=== PATIENT | male | born 1970 | race Caucasian/White ===

== ENCOUNTER → 2018-01-23 | Outpatient (CLI) | payer OTHER ==
[~2018-01-23] MED LIST: ASCA500 PO; MULT-506 PO
[2018-01-23 17:36] LABS: BASO % 0.2 %; BASO ABS # 0.02 K/uL (0-0.2); EOS % 0.7 %; EOS ABS # 0.09 K/uL (0-0.5); HEMATOCRIT 46.5 % (42-52); HEMOGLOBIN 16.2 g/dL (14.0-18.0); IG# 0.04 K/uL (0.00-0.02); LYMPH % 21.8 %; LYMPH ABS # 2.78 K/uL (1.2-3.4); MEAN CELL VOLUME 89.1 fL (80-100); MEAN CORPUSCULAR HGB CONC 34.8 g/dl (32-36); MEAN PLATELET VOLUME 10.3 fL (7.4-10.4); MONO ABS # 1.14 K/uL (0.11-0.59); NEUT ABS # 8.66 K/uL (1.4-6.5); PLATELET COUNT 249 K/uL (130-400); RED CELL DISTRIBUTION WIDTH CV 13.1 % (11.5-14.5); RED CELL DISTRIBUTION WIDTH SD 42.6 fL (36.4-46.3); WHITE BLOOD COUNT 12.73 K/uL (4.8-10.8)
[2018-01-23 17:55] LABS: ALBUMIN 3.7 gm/dl (3.4-5.0); ALT/SGPT 39 U/L (12-78); AST/SGOT 21 U/L (15-37); BLOOD UREA NITROGEN 11 mg/dl (7-18); CALCIUM 8.8 mg/dl (8.5-10.1); CARBON DIOXIDE 28 mmol/L (21-32); CREATININE 1.02 mg/dl (0.60-1.40); GLUCOSE 89 mg/dl (70-99); SODIUM 137 mmol/L (136-145)
[2018-01-23 17:58] LABS: ALKALINE PHOSPHATASE 80 U/L (45-117); TOTAL PROTEIN 7.4 gm/dl (6.4-8.2)
== END | disposition home or self-care (01) ==
LOC: C.LABBFT 14:17
PROVIDERS: ATTEND Internal Medicine
DX: E78.00 Pure hypercholesterolemia, unspecified (principal); I10 Essential (primary) hypertension

== ENCOUNTER → 2018-03-25 | Outpatient (CLI) | payer OTHER ==
[~2018-03-25] MED LIST changes: +ASCO500C43 PO; +ATOR-22 PO; +KETO10TA PO; +LISI-461 PO; +OXYC-57 PO; +SACC250C11 PO
--- NOTE | 2018-03-25 15:01 | DIAGNOSTIC IMAGING REPORT ---
R ELBOW MIN 3 VIEWS ROUTINE CLINICAL HISTORY: M25.421 pain and swelling. COMPARISON: None. DISCUSSION: The fat pads are not displaced. No fractures or dislocations are visualized. There is an olecranon spur. IMPRESSION: 1. No acute fractures 2. Olecranon spur Electronically signed by: Regino Baeza M.D. 03/25/2018 3:00 PM Dictated Date/Time: 03/25/2018 2:59 PM
== END | disposition home or self-care (01) ==
LOC: C.RAD 14:04
PROVIDERS: ATTEND Physician Assistant Medical
DX: M25.721 Osteophyte, right elbow (principal)

== ENCOUNTER → 2018-03-26 | Outpatient (CLI) | payer OTHER ==
[2018-03-26 16:54] LABS: BASO % 0.2 %; BASO ABS # 0.02 K/uL (0-0.2); EOS % 1.1 %; HEMATOCRIT 45.2 % (42-52); IG# 0.01 K/uL (0.00-0.02); LYMPH % 30.4 %; LYMPH ABS # 2.71 K/uL (1.2-3.4); MEAN CELL VOLUME 88.3 fL (80-100); MEAN CORPUSCULAR HEMOGLOBIN 31.3 pg (25-34); MEAN CORPUSCULAR HGB CONC 35.4 g/dl (32-36); MEAN PLATELET VOLUME 10.4 fL (7.4-10.4); MONO % 10.2 %; MONO ABS # 0.91 K/uL (0.11-0.59); NEUT ABS # 5.16 K/uL (1.4-6.5); PLATELET COUNT 225 K/uL (130-400); RED CELL DISTRIBUTION WIDTH CV 13.1 % (11.5-14.5); RED CELL DISTRIBUTION WIDTH SD 42.4 fL (36.4-46.3); WHITE BLOOD COUNT 8.91 K/uL (4.8-10.8)
[2018-03-26 17:06] LABS: BLOOD UREA NITROGEN 10 mg/dl (7-18); CALCIUM 8.8 mg/dl (8.5-10.1); CARBON DIOXIDE 30 mmol/L (21-32); CREATININE 1.08 mg/dl (0.60-1.40); GLUCOSE 89 mg/dl (70-99); POTASSIUM 3.9 mmol/L (3.5-5.1); SODIUM 141 mmol/L (136-145)
== END | disposition home or self-care (01) ==
LOC: C.LABBC 14:52
PROVIDERS: ATTEND Orthopaedic Surgery
DX: Z01.812 Encounter for preprocedural laboratory examination (principal); S46.211A Strain of muscle, fascia and tendon of other parts of biceps, right arm, initial encounter; X58.XXXA Exposure to other specified factors, initial encounter

== ENCOUNTER → 2018-03-27 | Day surgery (SDC) | payer OTHER ==
[2018-03-26 15:44] VITALS: Ht 190.5 cm; Wt 144.6 kg
[~2018-03-27] VITALS: Ht 190.5 cm; Wt 144.6 kg
[~2018-03-27] MED LIST changes: -ASCA500 PO; +ATROPINE SULFATE 0.1 MG/ML 5ML SYR IV PRN; +BUPIVACAINE 0.25% 30 ML VIAL ONE; +CEFAZOLIN 2000MG IV PUSH 15 ML IV SCH; +DEXAMETHASONE SOD INJ 4 MG/ML VIAL IV PRN; +EpHEDrine SULFATE INJ 50 MG/ML AMP IV PRN; +EpINEphrine INJ 1MG/ML AMP 1 MG/ML AMP ONE; +FENTANYL CITRATE INJ 50 MCG/1 ML 2 ML VIAL ONE; +KETOROLAC TROMETHAMINE 30 MG/ML VIAL IV. PRN; +LABETALOL HCL IV 5 MG/ML 20ML IV PRN; +LACTATED RINGER'S 1000ML 1,000 ML IV SCH; +LIDOCAINE HCL 2% 2 ML VIAL (20MG/ML) ONE; +METOCLOPRAMIDE HCL INJ 5 MG/ML 2 ML VIAL IV PRN; +MIDAZOLAM HCL 1 MG/ML 2ML VIAL ONE; +MoRPHine SULFATE 10 MG/ML CARP/VIAL IV PRN; +ONDANSETRON INJ 2 MG/ML 2 ML VIAL IV PRN; +ONDANSETRON INJ 2 MG/ML 2 ML VIAL ONE; +OXYCODONE/ACETAMINOPHEN 5-325 TAB PO PRN; +PHENYLEPHRINE 100MCG/ML 5ML SYR IV PRN; +PROPOFOL IV EMULSION 10 MG/ML 20 ML VIAL ONE; +SODIUM CHLORIDE 0.9% 1000ML 1,000 ML IV SCH
--- NOTE | 2018-03-27 11:55 | History & Physical Bridge Note ---
H&P Re-Evaluation Bridge Note: I have examined the patient, reviewed the History & Physical and in the interval since the performance of the History & Physical I have noted the following changes of clinical significance: No changes noted
--- NOTE | 2018-03-27 14:14 | [facility] Post Operative Brief Note ---
Immediate Operative Summary Operative Date March 27, 2018. Pre-Operative Diagnosis Right distal bicep tendon rupture Post-Operative Diagnosis Same as preop Procedure(s) Performed Right Distal Biceps Tendon Repair Surgeon Dr. Horn Gyroscopic Instrument Tester Surgeon(s) Samuel Charles PA-C Estimated Blood Loss 20 mL Findings Consistent with Post-Op Diagnosis Specimens None Anesthesia Type General Complication(s) none Disposition Disposition: Recovery Room / PACU
--- NOTE | 2018-03-27 14:37 | Discharge Instructions-SurgCtr ---
Discharge Instructions Date of Service March 27, 2018. Visit Reason for Visit: Right Distal Biceps Tendon Rupture Discharge Discharge Diagnosis / Problem: SAME ABOVE Discharge Goals Goal(s): Decrease discomfort, Improve function Activity Recommendations Activity Limitations: as noted below Lifting Limitations: until after follow-up appointment Exercise/Sports Limitations: until after follow-up appointment Shower/Bathe: may shower/bathe in 3 days Anesthesia . Post Anesthesia Instructions: If you have had General Anesthesia or IV Sedation: * Do not drive today. * Resume driving when surgeon permits. * Do not make important decisions or sign legal documents today. * Call surgeon for: 1. Temperature elevations greater than 101 degrees F. 2. Uncontrollable pain. 3. Excessive bleeding. 4. Persistent nausea and vomiting. 5. Medication intolerance (nausea, vomiting or rash). * For nausea and vomiting use only clear liquids such as: tea, soda, bouillon until nausea subsides, then gradually increase diet as tolerated. * If you have any concerns or questions, call your surgeon's office. If physician is unavailable and it is an emergency, call 911 or go to the nearest emergency room. . Instructions / Follow-Up Instructions / Follow-Up MEDICATIONS: * Resume previous medications unless instructed otherwise by your surgeon. * Always take pain medication on a full stomach or with food to avoid upset stomach. * Do not drink alcohol or drive while taking narcotics. * Ibuprofen or Tylenol may be taken if narcotic not needed. SPECIAL CARE INSTRUCTIONS: __ None _X_ Keep extremity elevated and iced x 48 hours; apply ice 20-30 minutes 8-10 times/day. May remove at night. _X_ Sling _X_24 hrs/day (MAY REMOVE TO SHOWER) __ Remove at night __ Shoulder Immobilizer __ 24 hrs/day __ Remove at night _X_ Dressing __ Maintain until seen in office, may shower with plastic over site _X_ Remove dressings in 72 hours and then may shower _X_ Cover incisions with band-aids after showering __ Do not remove steri-strips Call physician if chills or temperature rises above 102 degrees or pain unrelieved by prescribed pain medications at . . Diet Recommendations Home Diet: no limitations Procedures Procedures Performed: Right Distal Biceps Tendon Repair Pending Studies Studies pending at discharge: no Work Instructions Return To Work: after follow-up Lifting Limitations: NO LIFTING WITH RIGHT ARM Medical Emergencies . Who to Call and When: Medical Emergencies: If at any time you feel your situation is an emergency, please call 911 immediately. . Non-Emergent Contact Non-Emergency issues call your: Primary Care Provider Call Non-Emergent contact if: you have a fever, temperature is above 101.5 . . "Provider Documentation" section prepared by Samuel Charles. .
[2018-03-27] MEDS: FENTANYL CITRATE INJ 50 MCG/1 ML 2 ML VIAL IV PRN ×2 (14:55→15:06)
[2018-03-27 15:52] VITALS: BP 155/78; PULSE 80; TEMP 36.4; O2SAT 95
--- NOTE | 2018-03-27 15:55 | Anesthesia Progress Nt - [facility] ---
Anesthesia Post Op Note Date & Time March 27, 2018 at 15:55 Vital Signs Pain Intensity: 7.0 Vital Signs Past 12 Hours Date Time Temp Pulse Resp B/P (MAP) Pulse Ox O2 Delivery O2 Flow Rate FiO2 03/27/18 15:52 36.4 80 16 155/78 (103) 95 Room Air 03/27/18 15:25 36.4 78 16 152/80 (104) 94 Room Air 03/27/18 15:21 160/88 03/27/18 15:20 77 17 95 03/27/18 15:20 78 17 03/27/18 15:20 36.6 76 16 160/88 96 Room Air 03/27/18 15:16 141/81 03/27/18 15:15 72 16 03/27/18 15:15 72 16 97 03/27/18 15:14 73 17 99 03/27/18 15:14 72 17 03/27/18 15:11 141/81 03/27/18 15:09 75 13 03/27/18 15:09 75 13 92 03/27/18 15:06 143/65 03/27/18 15:04 74 16 03/27/18 15:04 74 16 96 03/27/18 15:01 147/87 03/27/18 14:59 68 19 03/27/18 14:59 70 19 97 03/27/18 14:56 152/91 03/27/18 14:54 71 15 97 03/27/18 14:54 72 15 03/27/18 14:51 148/84 03/27/18 14:49 78 21 03/27/18 14:49 78 21 97 03/27/18 14:46 143/88 18 14:44 82 13 152/66 98 18 14:44 81 13 18 14:41 199/175 18 14:39 77 13 18 14:39 75 13 97 18 14:38 72 15 18 14:38 72 15 97 03/27/18 14:37 124/88 18 14:34 167/89 17/18 14:34 36.1 80 16 167/89 98 Mask 6 18 14:33 81 95 18 14:33 81 03/27/18 10:56 36.9 65 20 126/79 (95) 96 Room Air Notes Mental Status: alert / awake / arousable, participated in evaluation Pt Amnestic to Procedure: Yes Nausea / Vomiting: adequately controlled Pain: adequately controlled Airway Patency, RR, SpO2: stable & adequate BP & HR: stable & adequate Hydration State: stable & adequate Anesthetic Complications: no major complications apparent
--- NOTE | 2018-03-27 17:14 | OPERATIVE REPORT ---
DATE OF OPERATION: 03/27/2018 PREOPERATIVE DIAGNOSIS: Acute right distal biceps tendon rupture. POSTOPERATIVE DIAGNOSIS: Acute right distal biceps tendon rupture. PROCEDURE: Open right distal biceps tenodesis. SURGEON: Dr. Jose Carlos Horn. MILLING/POLISHING OPERATOR: Samuel Charles PA-C, whose assistance was necessary for retraction and closure. ANESTHESIA: General. COMPLICATIONS: None. CONDITION: Stable to PACU. INDICATIONS: Sang is a pleasant 47-year-old male who was cranking his new Model T a couple days ago when he felt a pop in his right elbow. I saw him in the office and clinical examination was diagnostic for a distal biceps tendon rupture. He elected to proceed with open tenodesis. DESCRIPTION OF PROCEDURE: On 03/27/2018, he arrived at [facility] for the above procedure. He was seen in the preoperative holding area and the operative extremity was identified and signed. He was given a preoperative antibiotic, taken back to operating room, laid on the table in supine position and put under general anesthesia. The right elbow was prepped and draped in sterile fashion. Time-out was done. The patient and the operative extremity was properly identified. An anterior Christopher approach was used. Dissection was taken down through the fascia with care not to disrupt the neurovascular bundles. Dissection was taken down between the mobile wad and the flexor pronator mass. The radial tuberosity was identified and the biceps tendon was absent. The biceps tendon was then found more proximal in the incision and pulled out the wound. The tendon was then whipstitched with an Arthrex FiberLoop suture. The tendon measured to be 7 mm. An Arthrex biceps pin was passed from the center of the radial tuberosity out the posterior cortex. A cannulated 8 mm drill bit was then used to drill a hole in the radial tuberosity. An Arthrex biceps button was placed on the tails of the FiberLoop suture. The biceps button was then passed through the 8 mm hole and out the posterior cortex. It was then flipped and tension slide technique was used to deliver the tendon into the 8 mm hole. This gave good fixation. A 7 x 10 mm biointerference screw was then placed. This pushed the tendon ulnarly. The tails from the FiberLoop were wrapped around the screw and tied. The elbow was brought through a full range of motion and felt to be stable. The wound was then irrigated and surrounding soft tissues were injected with 30 mL of Marcaine with epinephrine. The tourniquet was deflated and hemostasis was easily controlled. The skin was then closed with 3-0 Vicryl and 4-0 nylon suture. He was then placed in a soft dressing, extubated, transferred to a [facility] and taken to postanesthesia care unit in stable condition and tolerated the procedure well. I attest to the content of the Intraoperative Record and any orders documented therein. Any exception s are noted below.
== END | disposition home or self-care (01) ==
LOC: X.SURG 10:40
PROVIDERS: ATTEND Orthopaedic Surgery
DX: S46.201A Unspecified injury of muscle, fascia and tendon of other parts of biceps, right arm, initial encounter (principal); X50.0XXA Overexertion from strenuous movement or load, initial encounter; I10 Essential (primary) hypertension; E78.5 Hyperlipidemia, unspecified; Z79.899 Other long term (current) drug therapy

== ENCOUNTER 2024-11-02 10:03 | Observation (INO) ==
--- NOTE | 2024-10-02 15:15 | PAT Medication Instructions ---
Medication Instructions Date of Service October 02, 2024 Home Medications Medication Instructions Recorded Wheeled Walker #1 ea 09/09/24 walker #1 ea 09/10/24 Medications Lactobacillus acidophilus 10 billion cell capsule (Probiotic) 10,000 mmu cells PO QAM ascorbic acid (vitamin C) 1,000 mg tablet (Vitamin C) 2 g PO QAM atorvastatin 40 mg tablet 40 mg PO HS carvedilol 3.125 mg tablet 3.125 mg PO BID lisinopril 10 mg tablet 10 mg PO BID magnesium 250 mg tablet 250 mg PO BID multivitamin (Daily Multi-Vitamin tablet) 1 tab PO QAM MEDICATION INSTRUCTIONS: DO NOT take the morning of surgery multivitamin (Daily Multi-Vitamin tablet) 1 tab PO QAM Lactobacillus acidophilus 10 billion cell capsule (Probiotic) 10,000 mmu cells PO QAM ascorbic acid (vitamin C) 1,000 mg tablet (Vitamin C) 2 g PO QAM lisinopril 10 mg tablet 10 mg PO BID magnesium 250 mg tablet 250 mg PO BID Take morning of surgery With a small sip of water, OTHERWISE NOTHING TO EAT OR DRINK AFTER MIDNIGHT: carvedilol 3.125 mg tablet 3.125 mg PO BID Take evening before surgery atorvastatin 40 mg tablet 40 mg PO HS carvedilol 3.125 mg tablet 3.125 mg PO BID lisinopril 10 mg tablet 10 mg PO BID magnesium 250 mg tablet 250 mg PO BID Other Notes If you have any questions please call us at [phone] or [phone] or [phone] or [phone]
--- NOTE | 2024-10-13 09:05 | Anesthesiology Consultation ---
Date of Service October 13, 2024 Assessment & Plan (1) Encounter for pre-operative examination: - Outpatient joint assessment: Patient is currently scheduled for inpatient pathway. If re-evaluated and patient/surgeon requests outpatient pathway, patient is acceptable candidate for outpatient joint program from anesthesia standpoint pending surgeon's office assessment of pt motivation/support/completion of same day joint program preop requirements. Chart Review Chart Review: Acceptable Risk for Surgery and Patient seen in Pre Admission Testing Teaching & Discussion Pre-Anesthesia Teaching/Discussion Notes: Instructed NPO after midnight before surgery, except medications with 15 cc of water. Medication instructions provided according to the PAT guidelines. History Surgery Operation Date: 11/02/24 08:40 Proposed Procedures p Right Total Knee Arthroplasty - Jose Carlos Horn DO Height/Weight Height: 6 ft 3 in Weight: 151.2 kg Allergies Allergy/AdvReac Type Severity Reaction Status Date / Time No Known Allergies Allergy Mild Verified 10/02/24 14:28 Medications Home Medications Medication Instructions Recorded Confirmed Last Taken Wheeled Walker #1 ea 09/09/24 09/09/24 Unknown walker #1 ea 09/10/24 Unknown Lactobacillus acidophilus 10 10,000 mmu cells PO QAM 10/02/24 10/02/24 Unknown billion cell capsule (Probiotic) ascorbic acid (vitamin C) 1,000 mg 2 g PO QAM 10/02/24 10/02/24 Unknown tablet (Vitamin C) atorvastatin 40 mg tablet 40 mg PO HS 10/02/24 10/02/24 Unknown carvedilol 3.125 mg tablet 3.125 mg PO BID 10/02/24 10/02/24 Unknown lisinopril 10 mg tablet 10 mg PO BID 10/02/24 10/02/24 Unknown magnesium 250 mg tablet 250 mg PO BID 10/02/24 10/02/24 Unknown multivitamin (Daily Multi-Vitamin 1 tab PO QAM 10/02/24 10/02/24 Unknown tablet) Past Medical History Medical History (Updated 10/13/24 @ 09:24 by Camilla Florez PA-C) Arthritis Hyperlipidemia Hypertension controlled, stable per pt Lower leg edema left-ongoing since 2018-denies change or worsening Patient denies h/o stroke, seizures, heart attack, heart failure, DM, blood clots/DVTs or blood transfusions. Exercise / Class Metabolic Activity II 4-5 Yardwork/Stairs/Walk up hill (denies chest discomfort or shortness of breath with one flight of stairs) Past Family History Family History Mother Prediabetes Father BASHIR (obstructive sleep apnea) Lymphoma Other No family history of adverse response to anesthesia Past Surgical History Surgical History (Updated 10/13/24 @ 09:24 by Camilla Florez PA-C) H/O lumbar discectomy (2020) H/O tooth extraction History of appendectomy at age 9 History of arthroscopy multiple, right/left knees History of cardiac cath 2018>[facility]/no stents needed (done d/t lower legs swelling) *followed by Eliceo Carlos History of colonoscopy Past Anesthesia History No Hx of Anesthesia Complications and No Family Hx of Anesthesia Complications History of PONV No Hx of PONV and No Hx of Motion Sickness Social History Smoking Status: Never smoker Do You Dip or Chew Tobacco: No Hx Alcohol Use: Yes Alcohol type: beer alcohol intake frequency: a few times a month substance use type: does not use Review of Systems Occasional snoring, denies witnessed apneas-reports multiple negative sleep studies in the past. States was told his legs move frequently at night, denies diagnosis of periodic limb movement disorder or restless legs. Patient denies chest pain, shortness of breath, dyspnea on exertion, reflux, fever, chills, cough, wheezing, or palpitations. Physical Exam Vital Signs Vitals BP 125/73 P 77 TEMP 98.5 SP02 96% on RA RESP 19 Physical Patient resting comfortably in chair in no acute distress, alert and oriented, responding appropriately throughout visit Full cervical extension range of motion without pain TMD 3.5 finger breadths Mallampati Score 3 Dentition: intact, denies chipped or loose teeth, caps/crowns, implants or bridges Lungs: normal respiratory effort. Good air movement, clear throughout to auscultation, no adventitious breath sounds Cardiac: regular rate and rhythm, no murmurs noted Carotid arteries: negative bruit bilat Lab Results Anesthesia Preop Results Results Anesthesia Widget: WBC 7.52 K/ul (4.8-10.8) 10/13/24 Hgb 15.2 g/dl (14.0-18.0) 10/13/24 Hct 44.7 % (42.0-52.0) 10/13/24 Plt 250 K/uL (130-400) 10/13/24 Na 140 mmol/L (136-145) 10/13/24 K 4.4 mmol/L (3.5-5.1) 10/13/24 Cl 106 mmol/L (98-107) 10/13/24 CO2 31 mmol/L (21-32) 10/13/24 BUN 13 mg/dl (6-23) 10/13/24 Creat 1.02 mg/dl (0.6-1.4) 10/13/24 Glucose Level 106 mg/dl (70-99(Fasting)) H 10/13/24 PT 10.3 Seconds (9.0-12.0) 10/13/24 PTT 26 Seconds (21-31) 10/13/24 INR 0.9 (0.9-1.1) 10/13/24 Blood Type O Negative 10/13/24 Antibody Screen NEGATIVE 10/13/24 Testing Electrocardiogram Date: 10/13/24 NSR, rate 75 bpm Cannot rule out septal infarct, age undetermined When compared with 02/28/2011 EKG-no significant change Chest X-Ray Date: 10/13/24 No acute cardiopulmonary findings. Echocardiogram Date: 06/01/19 EF 65-70% Normal LV wall motion Mild cLVH No regional wall motion abnormalities Mildly dilated LA Stress Test Date: 07/17/19 MPHR 87% METS 7 EF 55-60% No LV regional wall motion abnormalities Moderate cLVH Mildly dilated RV No significant valvular abnormalities Cardiac Catheterization Date: 09/09/19 Left main: no evidence of disease LAD: no evidence of disease Circumflex: no evidence of disease RCA: no evidence
--- NOTE | 2024-10-29 06:54 | History & Physical Report ---
Date of Service October 29, 2024 Assessment & Plan (1) Right knee DJD: We will proceed with a right total knee arthroplasty. Postoperatively he will be started on aspirin for DVT prophylaxis and kept overnight in the hospital for postop medical management. He plans to use [facility] home therapy u chicho discharge. History of Present Illness Chief Complaint: Osteoarthritis of the right knee. Primary Care Provider: NO PCP Sang is a pleasant 54-year-old male who has been dealing with chronic increasing right knee pain. X-rays and clinical examination have been diagnostic for worsening osteoarthritis of the right knee. After failing extensive conservative treatment, he has elected to proceed with a right total knee arthroplasty. . Allergies Allergy/AdvReac Type Severity Reaction Status Date / Time No Known Allergies Allergy Mild Verified 10/02/24 14:28 Home Medications Medication Instructions Recorded Confirmed Type Wheeled Walker #1 ea 09/09/24 09/09/24 Rx walker #1 ea 09/10/24 Rx Lactobacillus acidophilus 10 10,000 mmu cells PO QAM 10/02/24 10/02/24 History billion cell capsule (Probiotic) ascorbic acid (vitamin C) 1,000 mg 2 g PO QAM 10/02/24 10/02/24 History tablet (Vitamin C) atorvastatin 40 mg tablet 40 mg PO HS 10/02/24 10/02/24 History carvedilol 3.125 mg tablet 3.125 mg PO BID 10/02/24 10/02/24 History lisinopril 10 mg tablet 10 mg PO BID 10/02/24 10/02/24 History magnesium 250 mg tablet 250 mg PO BID 10/02/24 10/02/24 History multivitamin (Daily Multi-Vitamin 1 tab PO QAM 10/02/24 10/02/24 History tablet) Past Med/Surg History Problem List Encounter for pre-operative examination Right knee DJD Knee joint effusion Medical History Arthritis Lower leg edema left-ongoing since 2018-denies change or worsening Hypertension controlled, stable per pt Hyperlipidemia Surgical History History of arthroscopy multiple, right/left knees H/O lumbar discectomy (2020) History of colonoscopy H/O tooth extraction History of cardiac cath 2019>[facility]/no stents needed (done d/t lower legs swelling) *followed by Eliceo Durhamardo History of appendectomy at age 9 Family History Mother Prediabetes Father BASHIR (obstructive sleep apnea) Lymphoma Other No family history of adverse response to anesthesia Social History Smoking Status: Never smoker 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 Physical Exam On physical exam of the right knee, he has a slight varus deformity. Tenderness palpation of the distal medial femoral condyle and over the medial joint line.. Constitutional WD/WN, vitals as above Eyes PERRL, conjunctivae normal, anicteric sclerae ENMT external ear and nose normal, oropharynx normal Neck trachea midline, no thyromegaly Respiratory normal respiratory effort Cardiovascular RRR, no murmur, no edema Gastrointestinal (Abdomen) normal bowel sounds, soft, nontender, no hepatosplenomegaly Psychiatric A+Ox3, euthymic affect Results & Data Results & Data Laboratory Results . Diagnostic Findings X-rays of the right knee show advanced osteoarthritis with joint space narrowing, osteophyte formation, and [id number] tubulation. PG Care Time/CCT Total # of Minutes Spent Total Time Spent with Patient: Total time spent is greater than 50% in coordination of care (as documented) at patient's floor/unit and/or counseling patient: Coding Level of Care Code None Diagnoses Right knee DJD M17.11
[~2024-11-02 10:03] MED LIST changes: -ASCO500C43 PO; -ATOR-22 PO; -ATROPINE SULFATE 0.1 MG/ML 5ML SYR IV PRN; -BUPIVACAINE 0.25% 30 ML VIAL ONE; +BUPIVACAINE 0.5 % 5 MG/1 ML PF 10ML VIAL ONE; -CEFAZOLIN 2000MG IV PUSH 15 ML IV SCH; -DEXAMETHASONE SOD INJ 4 MG/ML VIAL IV PRN; -EpHEDrine SULFATE INJ 50 MG/ML AMP IV PRN; -EpINEphrine INJ 1MG/ML AMP 1 MG/ML AMP ONE; -FENTANYL CITRATE INJ 50 MCG/1 ML 2 ML VIAL ONE; -KETO10TA PO; -KETOROLAC TROMETHAMINE 30 MG/ML VIAL IV. PRN; -LABETALOL HCL IV 5 MG/ML 20ML IV PRN; -LACTATED RINGER'S 1000ML 1,000 ML IV SCH; -LIDOCAINE HCL 2% 2 ML VIAL (20MG/ML) ONE; -LISI-461 PO; -METOCLOPRAMIDE HCL INJ 5 MG/ML 2 ML VIAL IV PRN; -MIDAZOLAM HCL 1 MG/ML 2ML VIAL ONE; -MULT-506 PO; -MoRPHine SULFATE 10 MG/ML CARP/VIAL IV PRN; -ONDANSETRON INJ 2 MG/ML 2 ML VIAL IV PRN; -ONDANSETRON INJ 2 MG/ML 2 ML VIAL ONE; -OXYC-57 PO; -OXYCODONE/ACETAMINOPHEN 5-325 TAB PO PRN; -PHENYLEPHRINE 100MCG/ML 5ML SYR IV PRN; -PROPOFOL IV EMULSION 10 MG/ML 20 ML VIAL ONE; +ROPIVACAINE 0.5% 5 MG/ML 30 ML VIAL ONE; -SACC250C11 PO; -SODIUM CHLORIDE 0.9% 1000ML 1,000 ML IV SCH
[2024-11-02] MEDS: LR 500ML BOLUS, THEN 15ML/HR IV SCH (10:50)
[2024-11-02] MEDS: LR 60ML/HR IV SCH (10:51)
[2024-11-02] MEDS: dexAMETHasone**PF** 10 MG/ML VIAL IV SCH (10:51)
[2024-11-02] MEDS: ACETAMINOPHEN 500 MG TAB PO SCH ×2 (10:51→21:54)
[2024-11-02] MEDS: GABAPENTIN 900 MG DOSE PO SCH (10:51)
[2024-11-02] MEDS: FAMOTIDINE 20 MG TAB PO SCH (10:51)
[2024-11-02] MEDS ORDERED: DROPERIDOL 5 MG/2 ML VIAL IV PRN (11:28)
[2024-11-02] MEDS ORDERED: ATROPINE SULFATE 0.1 MG/ML 10ML SYR IV PRN (11:28)
[2024-11-02] MEDS ORDERED: fentaNYL citrate PF 100 MCG/2 ML VIAL IV PRN (11:28)
[2024-11-02] MEDS ORDERED: ePHEDrine sulfate 50 MG/ML AMP IV PRN (11:28)
[2024-11-02] MEDS ORDERED: LIDOCAINE 2% 2 ML VIAL/AMP(20MG/ML) INFIL ONE (11:35)
[2024-11-02] MEDS ORDERED: ONDANSETRON INJ 2 MG/ML 2 ML VIAL ONE (11:35)
[2024-11-02] MEDS ORDERED: PROPOFOL IV EMULSION 10 MG/ML 20 ML VIAL IV ONE ×2 (11:35→13:42)
[2024-11-02] MEDS ORDERED: fentaNYL citrate PF 100 MCG/2 ML VIAL ONE (11:36)
[2024-11-02] MEDS ORDERED: MIDAZOLAM HCL 1 MG/ML 2ML VIAL ONE ×2 (11:37→12:28)
--- NOTE | 2024-11-02 12:08 | History & Physical Bridge Note ---
Date of Service November 02, 2024 History & Physical Bridge Note I have examined the patient, reviewed the History & Physical and in the interval since the performance of the History & Physical I have noted the following changes of clinical significance: no changes noted
[2024-11-02] MEDS: TRANEXAMIC ACID 1,000 MG **IV Pre-op IV SCH (12:22)
[2024-11-02] MEDS: ceFAZolin 3000MG 3,000 MG/72.5 ML BAG IV SCH (12:50)
[2024-11-02] MEDS: ORTHO JOINT ANESTHETIC ONE (13:30)
[2024-11-02] MEDS: ROPIV 0.5% 246mg, Ketorolac 30mg, EPINEPHrine 0.5mg in NSS INFIL SCH (13:30)
[2024-11-02] MEDS ORDERED: PHENYLEPHRINE HCL 10 MG/ML VIAL ONE (13:42)
[2024-11-02] MEDS: TRANEXAMIC ACID 1,000 MG **IV Intra-op IV SCH (13:47)
--- NOTE | 2024-11-02 14:01 | Anesthesiology Progress Note ---
Date of Service November 02, 2024 Anesthesia Post Procedure Vital Signs Vital Signs: Temp Pulse Resp BP Pulse Ox O2 Del Method 11/02/24 10:25 36.7 C 67 18 135/66 95 Room Air Notes Mental Status: alert / awake / arousable Patient Amnestic to Procedure: Yes Nausea / Vomiting: adequately controlled Pain: adequately controlled Airway Patency, RR, SpO2: stable & adequate BP & HR: stable & adequate Hydration State: stable & adequate Neuraxial Anesthesia: was administered and sensory block is resolving Anesthetic Complications: no major complications apparent
[2024-11-02] MEDS ORDERED: HYDROmorphone INJ 0.5 MG/0.5 ML SYR IV PRN (14:30)
[2024-11-02] MEDS ORDERED: MAGNESIUM HYDROXIDE SUSP 30 ML UDC PO PRN (14:30)
[2024-11-02] MEDS ORDERED: ONDANSETRON INJ 2 MG/ML 2 ML VIAL IV PRN (14:30)
[2024-11-02] MEDS ORDERED: METOCLOPRAMIDE HCL INJ 5 MG/ML 2 ML VIAL IV PRN (14:30)
[2024-11-02] MEDS ORDERED: NALOXONE HCL 0.4 MG/1 ML VIAL/CARP IV PRN (14:30)
[2024-11-02] MEDS ORDERED: bisacodyL 10 MG SUPP PR PRN (14:30)
--- NOTE | 2024-11-02 15:08 | XRay Report ---
XR knee RT 1 or 2V routine CLINICAL HISTORY: Surgical Post Op TECHNIQUE: 2 views of the right knee were obtained. Comparison: Comparison is made to tibia-fibula radiographs 02/28/2011 FINDINGS: Patient is status post total knee arthroplasty with expected postsurgical changes including soft tiss ue swelling and subcutaneous emphysema. No periarticular lucency or hardware fracture is seen. IMPRESSION: Expected postoperative appearance status post placement of total knee arthroplasty. ACT 112: Negative or not required by law. Electronically signed by: Joni Barnett M.D. 11/02/2024 3:07 PM
--- NOTE | 2024-11-02 15:25 | Operative Report ---
PG Post Operative Report Pre & Post Diagnosis Operation Date: 11/02/24 12:00 Pre-Op Diagnosis: Right Knee Arthritis Post-Op Diagnosis: Right Knee Arthritis I identified the patient and participated in the time-out.: Yes Procedure Operation Date: 11/02/24 12:00 Actual Procedures p Right Total Knee Arthroplasty(Right) - Jose Carlos Horn DO Surgeon Jose Carlos Horn DO Glue Machine Operator Sanjay Wilcox PA-C Estimated Blood Loss 30 Findings Consistent with Post-Op Diagnosis Specimens Right femoral and tibial bone Description of Procedure Implants used: I used a Veronica Persona total knee arthroplasty system with a size 12 standard PS femur, G tibia, 34 oval patella, and a size 10 CPS polyethylene bearing. All components were cemented in place with Biomet cement. Sang arrived [facility] for the above procedure. He was seen in the preoperative holding area and the operative extremity was identified and signed. He was given a preoperative antibiotic, TXA, a spinal anesthetic and an adductor nerve block. He was taken back to the operating room and laid on the table in supine position. He was given basic sedation. The operative knee was then prepped and draped in sterile fashion. A timeout was done, and the patient and the operative extremity was properly identified. A midline incision was made directly over the patella. Dissection was taken down to the extensor mechanism. A medial parapatellar arthrotomy was used. The medial retinaculum was released and the fat pad was mostly excised. The knee was flexed and the ACL, PCL, and meniscus were removed. A drill was sent down the center of the femoral canal followed by an intramedullary saleem. Off that saleem a distal femoral cutting block was placed. 9 mm was resected off the distal femur at 5 of valgus. A posterior referencing AP sizing guide was then placed on the distal femur. The femur measured to be a size 12. 2 drill holes were placed in 3 of external rotation. A 4-in-1 cutting block was then impacted into place. Anterior, posterior, and chamfer cuts were then made. The proximal tibia was then exposed. An external tibial alignment guide was placed. A tibial cut guide was then anchored in place and the proximal tibia was then resected. The posterior aspect of the knee was then opened up and any additional meniscus fragments and osteophytes were removed. The tibia measured to be a size G. The tibial plate was then placed in the appropriate rotation and the tibia was drilled and punched. Trial components were then placed. I used a size 12 CPS polyethylene insert. The knee was brought through a full range of motion and felt to be stable. The peg holes for the femoral component were then drilled. The patella was then everted and 9 mm was resected off the posterior aspect of the patella. The patella measured to be a size 34 oval. 3 peg holes were then drilled. A trial patella was placed. The knee was once again brought through a full range of motion and felt to be stable. Trial components were then removed. The surrounding soft tissues were injected with 100 cc of an orthopedic pain control cocktail. All components were then cemented into place with Biomet cement. The final polyethylene insert was then snapped into place. Once cement was dry the tourniquet was deflated. Hemostasi s was obtained. A dilute betadyne lavage was then done for 3 minutes. The joint was then irrigated with normal saline solution. The medial parapatellar arthrotomy was then closed with #1 Vicryl suture. The skin was closed with 2-0 Vicryl, 3-0V lock suture, and bruna. A soft compressive dressing was placed. He was then transferred to a hospital bed and taken to the postanesthesia care unit in stable condition. He tolerated the procedure well. Sanjay Wilcox PA-C, was present for the entire procedure. He was critical for patient positioning, prepping, draping, retraction exposure, wound closure and application of sterile dressing. I attest to the content of the Intraoperative Record and any orders documented therein. Any exceptions are noted below.
[2024-11-02] MEDS: KETOROLAC TROMETHAMINE 15 MG/ML VIAL IV SCH (16:05)
[2024-11-02 16:48] VITALS: RESP 16
[2024-11-02] MEDS: oxyCODONE HCL IR 5 MG TAB (IMMEDIATE RELEASE) PO PRN (17:44)
[2024-11-02] MEDS ORDERED: ceFAZolin 1000MG 1,000 MG/7.5 ML SYR IV SCH (20:30)
[2024-11-02] MEDS: lisinopril 10 MG TAB PO SCH (21:52)
[2024-11-02] MEDS: MAGNESIUM OXIDE 400 MG TAB PO SCH (21:52)
[2024-11-02] MEDS: ASPIRIN 81 MG ECTAB PO SCH (21:53)
[2024-11-02] MEDS: DOCUSATE SODIUM 100 MG CAP PO SCH (21:53)
[2024-11-02] MEDS: carvediloL 3.125 MG TAB PO SCH (21:53)
[2024-11-02] MEDS: SENNA 8.6 MG TAB PO SCH (21:53)
[2024-11-02] MEDS: ATORVASTATIN 40 MG TAB PO SCH (21:53)
[2024-11-02] MEDS: ceFAZolin 2000MG 2,000 MG/15 ML SYR IV SCH (21:55)
--- NOTE | 2024-11-03 06:02 | Discharge Summary ---
Date of Service November 03, 2024 Admission HPI (Per Admitting) Sang is a pleasant 54-year-old male who has been dealing with chronic increasing right knee pain. X-rays and clinical examination have been diagnostic for worsening osteoarthritis of the right knee. After failing extensive conservative treatment, he has elected to proceed with a right total knee arthroplasty. . Admission Exam (Per Admitting) On physical exam of the right knee, he has a slight varus deformity. Tenderness palpation of the distal medial femoral condyle and over the medial joint line.. Principal Diagnosis Same as "Discharge Diagnosis" noted below under Discharge Instructions. Discharge Exam On physical exam of the right knee, the dressing is clean and dry. His leg is out full extension. He has active dorsiflexion plantarflexion of his right ankle.. Discharge Data Procedures Performed Operation Date: 11/02/24 12:00 Actual Procedures p Right Total Knee Arthroplasty(Right) - Jose Carlos Horn DO Ordered Studies 11/02/24 05:00 US - OR guided needle placemen Routine Hospital Course (1) Status post right knee replacement: On November 02, 2024 Sang arrived at [facility] and underwent a right knee replacement without complication. He had a spinal anesthetic. Postoperatively he was started on aspirin for DVT prophylaxis and transferred to the general orthopedic floors. His hospital course was uneventful. On postop day #1, his vital signs were stable and his pain was well-controlled. He was able to participate well with physical therapy doing ambulation and range of motion exercises. He was then discharged to home. He will follow-up with orthopedics in 2 weeks. PG Care Time/CCT Total # of Minutes Spent Total Time Spent with Patient: Total time spent is greater than 50% in coordination of care (as documented) at patient's floor/unit and/or counseling patient: Discharge Plan Discharge Items Patient Disposition: Home - Self-Care Reason For Visit: Right Knee Arthritis Discharge Diagnosis: Osteoarthritis of the right knee Activity: Per Instructions section Non-emergency contact: Surgeon Call non-emergency contact if: your wound has increased redness and your wound has increased drainage Follow-up/Referrals: PCP,NO [Primary Care Provider] - Diet: Regular Addtl Attending Provider Instructions: Activity and Therapy Recommendations: * If you are using [facility] then therapy will be provided at your home until they feel you have accomplished all of your goals. * If you are using [facility] then Physical Therapy will be provided until they feel you are ready to start Outpatient Physical Therapy. * If you are not using home therapy then Outpatient Physical Therapy should start about 3-5 days from your day of surgery. Therapy will last about 6-10 weeks * It is important not to put a pillow under your knee when you are relaxing or sleeping. It is just as important to make sure you are getting your knee perfectly straight as it is to regain your knee bend. * You were shown a series of exercises in the hospital. Do these exercises three times each day including the exercises you were shown in physical therapy. * Get up and walk several times each day. For the first four weeks, try not to stand or walk for more than one hour at a time. If you do stand or walk for more than one hour, you will not hurt anything, but your leg will likely swell. * As you feel comfortable, you may change from the walker or crutches to a cane and then to independent walking. Medications: * Narcotic You will likely be sent home from the hospital with a prescription for the narcotic pain medication that worked best throughout your stay. * Cefadroxil -take the antibiotic twice a day for 10 days to help prevent in fection. * Aspirin Most patients will be required to take Aspirin 81mg twice a day for 6 weeks after surgery. This is obtained [id number] and a prescription is not necessary. * Other medications may be prescribed for specific circumstances. If you have any questions, please call the office at . * Resume previous home medications unless otherwise instructed TEDs/Elastic Stockings: The white elastic stockings help limit swelling and prevent blood clots from forming in your legs.~ The more you wear them, the more they work. Wear them for six weeks. Dressing Care: The dressing can be changed after physical therapy on postop day #1. Daily dry dressing changes for a few days, especially if the incision is still draining some. If the incision is not draining then you may leave the bruna open to air. If there is a little bit of drainage or if the bruna are getting stuck on your clothing then cover the incision with a dry dressing. The bruna will be removed at your 2 week follow-up appointment. Showering: You may shower 5 days from the day of surgery as long as the incision is no longer draining. You may shower with the bruna exposed. Let soapy water run over the bruna and pat them dry. Do not scrub or soak the incision. Diet: You may resume your previous diet. Things To Watch For: * Drainage from the incision site that occurs more than one week after your s urgery. * Increased redness at the incision site. * Fever above 102 degrees Fahrenheit. * Unusual chest pain or shortness of breath. * Call [facility] at with any of the above problems Follow-Up Visit: Follow-up with Dr. Horn's office 2-3 weeks after your day of surgery. We will remove your bruna and answer any questions. If you have any additional questions or concerns, Dr Horn is usually in the office at the same time and will be available An appointment was probably scheduled when you signed-up for surgery in the office. If you have any questions call Office Instructions: More detailed instructions as well as Frequently Asked Questions were provided in a folder by our office when you signed-up for surgery. Please review these instructions when you get home. If you have any further questions or concerns, please feel free to call the office at [phone] Pending Studies at Discharge: No Stand-Alone Forms: [facility], Smoking Cessation Medications and DC Order Prescriptions: New oxycodone 5 mg tablet 5 mg PO Q6H PRN (Reason: pain) Qty: 30 0RF cefadroxil 500 mg capsule 500 mg PO BID 10 Days Qty: 20 0RF aspirin [Adult Aspirin Regimen] 81 mg tablet,delayed release (DR/EC) 81 mg PO BID Qty: 84 0RF Continued ([place]DA[place] [facility] [place] .MED[place]PPLY Qty: 1 0RF Rx Instructions: As directed (DME) Dilma Ramirez [facility] [place] .MEDSUPPLY Qty: 1 0RF Rx Instructions: As directed atorvastatin 40 mg Tablet 40 mg PO HS ascorbic acid (vitamin C) [Vitamin C] 1,000 mg Tablet 2 g PO QAM carvedilol 3.125 mg Tablet 3.125 mg PO BID Rx Instructions: must administer with a meal/food magnesium 250 mg Tablet 250 mg PO BID Probiotic 10 billion cell Capsule 10,000 mmu cells PO QAM Patient Comments: 60 billion daily multivitamin [Daily Multi-Vitamin] tablet 1 tab PO QAM lisinopril 10 mg tablet 10 mg PO BID Discharge Orders: Discharge Order (Routine); Ordered 11/03/24 Ordered By: Jose Calros Horn Admission Data Admit Date/Time: 11/02/24 14:30 Attending Provider: Jose Carlos Horn Admit Provider: Jose Carlos Horn Primary Care Provider: PCP,CRISTY
--- NOTE | 2024-11-03 06:02 | Orthopedic Progress Note ---
Date of Service November 03, 2024 Assessment & Plan (1) Status post right knee replacement: Overall he is doing very well. He is not having much pain in the right knee. He will be seen by physical therapy today for ambulation and range of motion exercises. The nursing staff can change his dressing after physical therapy. He is on aspirin for DVT prophylaxis. He can be discharged to home later today. He will follow-up orthopedics in 2 weeks. Gerard Domínguez was seen and examined at bedside this morning. Overall he is doing very well. He is not having much pain in the right knee. He has been up and ambulating to the bathroom. He has no complaints.. Review of Systems All systems reviewed & are unremarkable except as noted in HPI & below. Physical Exam On physical exam of the right knee, the dressing is clean and dry. His leg is out full extension. He has active dorsiflexion plantarflexion of his right ankle.. Results & Data Results & Data Laboratory Results . Diagnostic Findings Postoperative x-rays of the right knee show the prosthesis to be in anatomic alignment without any evidence of fracture complication, or loosening.. PG Care Time/CCT Total # of Minutes Spent Total Time Spent with Patient: Total time spent is greater than 50% in coordination of care (as documented) at patient's floor/unit and/or counseling patient: Coding Level of Care Code 49642 Post Operative Follow-Up Diagnoses Status post right knee replacement Z96.651
[2024-11-03 07:54] VITALS: BP 110/71; TEMP 97.7; O2SAT 96
[2024-11-03] MEDS: ADVANCED PROBIOTIC 625 MG CAPSULE PO SCH (08:55)
[2024-11-03] MEDS: ASCORBIC ACID 500 MG TAB PO SCH (08:55)
[2024-11-03] MEDS: MULTIVITAMIN TAB PO SCH ×2 (08:55→08:56)
[2024-11-03] MEDS: dexAMETHasone 4 MG TAB PO SCH (08:56)
[2024-11-03 09:40] VITALS: PULSE 68
--- OUTSIDE RECORDS SUMMARY | 2024-11-03 10:50 | External Medical Summary | Summary of Care ---
Author Name Unknown Organization [facility] Address [address] [place] [address] Phone [phone] Care Team Providers Care Automatic Brine Mixer Operator Name Role Phone Rosaura Cody MD Primary Care Provider [phone] Reason for Referral * Evaluate & Treat - Unlimited Visits (Within 30 days (routine)) - Authorized Specialty Diagnoses / Procedures Referred By Contmyesha t Referred To Contact Dermatology Diagnoses History of melanoma in situ Screening for malignant neoplasm of skin Rosaura Cody MD [address] [place] [address] Phone: tel: fax: Referral ID Status Reason Start Date Expiration Date Visits Requested Visits Authorized [id number] Authorized Specialty Services Required 4 [phone] Question Answer Referral Priority Within 30 days (routine) Where should this appointment be scheduled? [facility] Are you referring the patient for Mohs Surgery and have a current positive skin cancer biopsy result? No What is the reason for the patient referral? Rash/Skin Check/Eval of Lesion or Mole Reason for Visit * Reason Onset Date Comments Referral 10/27/2024 Encounter Details Date Type Department Care Team (Late st Contact Info) Description 10/27/2024 Telephone General Internal Medicine [place] [facility] [address] [place] [address] Rosaura Cody MD [address] [place] [id number] Referral Allergies No known active allergiesdocumented as of this encounter (statuses as of 11/02/2024) Medications CENTRUM PO TABS 1 tablet by mouth once daily Active VITAMIN C 1000 MG PO TABS 2-3 tablets by mouth daily Active Lactobacillus (PROBIOTIC ACIDOPHILUS) CAPS Take 1 Cap by mouth daily. Active Sildenafil Citrate 50 MG Oral Tablet (Viagra)Indicati ons:Other male erectile dysfunction 1 tab 1-4 hours before intercourse, no more than 1 dose in 24 hours. 10 Tablet 5 01/22/2024 Active Carvedilol 3.125 MG Oral Tablet (Coreg)Indicatio ns:Hypertensive left ventricular hypertrophy, without heart failure TAKE 1 TABLET BY MOUTH TWICE A DAY 180 Tablet 3 03/09/2024 Active Lisinopril 10 MG Oral Tablet (Prinivil)Indica tions:Hypertensi ve left ventricular hypertrophy, without heart failure TAKE 1 TABLET BY MOUTH TWICE A DAY 180 Tablet 3 05/13/2024 Active Atorvastatin Calcium 40 MG Oral Tablet (Lipitor)Indicat ions:Mixed hyperlipidemia,L ow HDL (under 40) TAKE BY MOUTH 1 TABLET BEFORE BEDTIME. INC 07/20/2022. 90 Tablet 2 07/14/2024 Active documented as of this encounter (statuses as of 11/02/2024) Active Problems Problem Noted Date Diagnosed Date Lumbar disc herniation 07/02/2022 Lumbosacral radiculopathy at S1 07/02/2022 History of melanoma in situ 09/25/2021 History of colon polyps 06/01/2021 Overview (06/01/2021): 05/31-Two 3 to 6 mm polyps in the ascending colon-rpt 5 yrs Hypertensive left ventricula r hypertrophy, without heart failure 08/12/2019 Mixed hyperlipidemia 08/12/2019 BMI 40.0-44.9, adult 08/12/2019 Bilateral leg edema 08/12/2019 Venous insufficiency 08/12/2019 JOHNSON (dyspnea on exertion) 08/12/2019 Right nephrolithiasis 08/12/2019 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 documented as of this encounter (statuses as of 11/02/2024) Immunizations Name Administration Dates Next Due TDAP (age 10 and older)(Boostrix) 02/15/2021 Zoster Vaccine Recombinant (Shingrix) 07/29/2024 documented as of this encounter Social History Tobacco Use Types Packs/Day Years Used Date Smoking Tobacco: Never Smokeless Tobacco: Never Alcohol Use Standard Drinks/Week Comments Yes 0 (1 standard drink = 0.6 oz pur e alcohol) occasional beer Social Connection and Isolation Panel [NHANES] A nswer Date Recorded Frequency of Communication with Friends and Fami ly Patient declined 08/12/2019 Frequency of Social Gatherings with Friends and Family Patient declined 08/12/2019 Attends Church Services Patient declined 12/2018 Active Member of Clubs or Organizations Patient declined 08/12/2019 Attends Club or Organization Meetings Patient de clined 08/12/2019 Marital Status Patient declined 08/12/2019 Overall Financial Resource Strain (CARDIA) Answe r Date Recorded Difficulty of Paying Living Expenses Not hard at all 08/12/2019 PHQ-2 Answer Date Recorded PHQ Adult Total Score 0 01/02/2023 [facility] - Occupational Stress Questionnaire Answer Date Recorded Feeling of Stress Not at all 08/12/2019 Exercise Vital Sign Answer Date Recorde d Days of Exercise per Week 5 days 2018 Minutes of Exercise per Session 60 min 08/12/2019 Hunger Vital Sign Answer Date Recorded Worried About Running Out of Food in the Last Ye ar Never true 08/12/2019 Ran Out of Food in the Last Year Never true 08/12/2019 PRAPARE - Transportation Answer Date Re corded Lack of Transportation (Medical) No 08/12/2019 Lack of Transportation (Non-Medical) No 08/12/2019 Utilities Answer Date Recorded Do you have trouble paying y our heating, water, or electric bill? (Adult - for ages 18 years and over) Not on file 04/28/2024 Is your family able to pay t he heat, water, or electric bill? (Household - for ages 0-17 years) Not on file 04/28/2024 Does your family have access to good internet? (Household - for ages 0-17 years) Not on file 04/28/2024 Social Connections Answer Date Recorded How often do you feel lonely or isolated from those around you? 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 Answer Date of Assessment Author No 11/15/2022 2:00 PM EST Genaro, R ichanna L, MOTORIZED SQUAD CAPTAIN * Are you blind or do you have serious difficulty seeing, even when wearing glasses? Answer Date of Assessment Author No 11/15/2022 2:00 PM EST Genaro, R ichanna L, MOTORIZED SQUAD CAPTAIN * Do you have serious difficulty walking or climbing stairs? (5 years old or older) Answer Date of Assessment Author No 11/15/2022 2:00 PM EST Genaro, R ichanna L, MOTORIZED SQUAD CAPTAIN * Do you have difficulty dressing or bathing? (5 years old or older) Answer Date of Assessment Author No 11/15/2022 2:00 PM EST Genaro, R ichanna L, MOTORIZED SQUAD CAPTAIN * Because of a physical, mental, or emotional condition, do you have difficulty doing errands alone such as visiting a doctors office or shopping? (15 years old or older) Answer Date of Assessment Author No 11/15/2022 2:00 PM EST Genaro, R ichanna L, MOTORIZED SQUAD CAPTAIN documented as of this encounter Mental Status * Because of a physical, mental, or emotional condition, do you have serious difficulty concentrating, remembering, or making decisions? (5 years old or older) Answer Entry Date Author No 11/15/2022 2:00 PM EST Genaro, R ichanna L, MOTORIZED SQUAD CAPTAIN documented in this encounter Miscellaneous Notes * Telephone Encounter - Vianey Black RN - 11/02/2024 1:32 PM EST Provider to address: Dermatology referral placed. Reason for Call: Referral Contact: [facility] Contact Type: Referral(s) Placed Provider In-Basket: Yes Outcome: see above Face to face time spent with Patient (minutes): 0 Total Time including non face to face (minutes): 10 * Telephone Encounter - Fariba Mccray OSA - 10/27/2024 4:01 PM EST Pt has an appt coming up with Dermatology on 11/16/[address] Enamorado. Their [facility] requires a referral for all specialty visits in order for office visit to be covered. Please place referral if agreeable. documented in this encounter Plan of Treatment Upcoming Encounters Date Type Department Care Team (Late st Contact Info) Description 11/16/2024 2:00 PM EST Office Visit Dermatology [facility] [place] [address] [address] Torsten Enamorado MD [address] [facility] [address] [id number] 11/16/2024 3:00 PM EST Nurse Only Ancillary [facility] Breonna [place] [address] [address] Nurse, Int Med [address] [facility] [address] [id number] Scheduled Procedures Name Priority Associated Diagnoses Date/Ti me COLONOSCOPY FLEXIBLE PROXIMAL DIAGNOSTIC Recall History of colon polyps Scheduled Referrals Name Type Priority Associated Diagnoses Orde r Schedule DERMATOLOGY REFERRAL OP Referral Within 30 days (routine) History of melanoma in situ Screening for malignant neoplasm of skin Ordered: 11/02/2024 Health Maintenance Due Date Last Done Comments Cologuard 2016 Fecal Occult Blood Test 2016 Sigmoidoscopy 2016 Depression Screening 01/02/2024 01/02/2023 COVID-19 Vaccine ( season) 2024 Influenza Vaccine (FLU shot) (#1) 2024 Zoster Vaccines (2 of 2) 09/23/2024 07/29/2024 Colonoscopy 05/31/2026 05/31/2021, 05/31/2021 Colorectal Cancer Screening 05/31/2026 Diabetes Screening 01/10/2027 01/11/2024, 0 01/11/2024, 01/02/2023, Additional history exists Lipid Panel 01/10/2029 01/11/2024, 12/13, 07/14/2022, Additional history exists DTap/Tdap Vaccines (2 - Td or Tdap) 02/15/2031 02/15/2021 RETIRED - COLONOSCOPY-EVERY 5 YRS AGES 18-100 Discontinued 05/31/2021, 05/31/2021 HPV (Gardasil) Vaccine Aged Out No lo nger eligible based on patient's age to complete this topic MENINGOCOCCAL (MENACTRA/MENVEO) Aged Out No longer eligible based on patient's age to complete this topic Pneumococcal Vaccine: Pediatrics (0 to 5 Years) and At-Risk Patients (6 to 64 Years) Aged Out No longer eligible based on patient's age to complete this topic documented as of this encounter Medical Devices Not on filedocumented as of this encounter Visit Diagnoses Diagnosis History of melanoma in situ- Primary Personal history of malignant melanoma of skin Screening for malignant neoplasm of skin Screening for malignant neoplasm of the skin documented in this encounter Advance Directives * Full Code (Latest Code Status on File) Date Activated Date Inactivated Comments 10/12/2022 10:47 AM 10/12/2022 4:57 PM This order reflects the patients wishes and were consensually agreed upon. Question Answer Comments Discussion of Advance Direct yu occurred with: Not Discussed due to patient's condition * Full Code Date Activated Date Inactivated Comments 10/12/2022 6:34 AM 10/12/2022 10:46 AM This order reflects the patients wishes and were consensually agreed upon. Question Answer Comments Discussion of Advance Direct yu occurred with: Not Discussed due to patient's condition Care Teams Automatic Brine Mixer Operator Relationship Specialty Start Date End Date Rosaura Cody MD [address] [place] [address], [place] [address] PCP - General Internal Medicine 11/15/22 documented as of this encounter
== END 2024-11-03 10:45 | disposition home or self-care (01) ==
LOC: 3E 10:03 → ASU 10:03
DX: I10 Essential (primary) hypertension; E78.5 Hyperlipidemia, unspecified; Z79.899 Other long term (current) drug therapy; M17.11 Unilateral primary osteoarthritis, right knee